=== PATIENT | female | born 1990 | race Hispanic/Latino ===

== ENCOUNTER 2018-10-18 19:27 | Emergency (ER) | payer MEDICAID, OTHER ==
[2018-10-18 19:27] VITALS: BMI 42.0
--- NOTE | 2018-10-18 19:59 | C.PDOC ---
History Of Present Illness The patient presents to the ED for evaluation of shortness of breath and chest discomfort that have been intermittent for around one month. Patient was given an Albuterol inhaler, which she has used twice without relief. Patient is s peaking in full sentences in the ED at this time and denies fever, chills, nausea, vomiting, recent prolonged trips, or known trauma. Time Seen by Provider: 10/18/18 19:59 Chief Complaint (Nursing): Chest Pain History Per: Patient History/Exam Limitations: no limitations Onset/Duration Of Symptoms: Intermittent Episodes, Other (one month ) Current Symptoms Are (Timing): Still Present Severity: Mild Pain Scale Rating Of: 2 Quality: "Pain" Modifying Factors: None Exacerbating Factors: None Alleviating Factors: None Recent travel outside of the [place]: No Additional History Per: Patient Past Medical History Reviewed: Historical Data, Nursing Documentation, Vital Signs Vital Signs: Last Vital Signs Temp 97.9 F 10/18/18 19:42 Pulse 99 H 10/18/18 19:42 Resp 22 10/18/18 19:42 BP 130/87 10/18/18 19:42 Pulse Ox 100 10/18/18 19:42 - Medical History PMH: Asthma, Diabetes, Hypercholesterolemia, Sleep Apnea (Has C PAP at home for sleep but does not use it) Denies: Chronic Kidney Disease Surgical History: Endoscopy - [facility] Procedures ESOPHAGOGASTRODUODENOSCOPY [EGD] W/CLOSED BIOPSY (05/30/14) HIGHLY SELECT VAGOTOMY (09/02/14) LAPAROSCOPIC GASTROENTEROSTOMY (09/02/14) OTHER GASTROSCOPY (09/02/14) VACCINATION NEC (09/02/14) Family History: States: Unknown Family Hx - Social History Hx Tobacco Use: No Hx Alcohol Use: Yes Hx Substance Use: No - Immunization History Hx Influenza Vaccination: Yes Review Of Systems Constitutional: Negative for: Fever, Chills Cardiovascular: Positive for: Other (chest discomfort ) Respiratory: Positive for: Shortness of Breath Physical Exam - Physical Exam Appears: Non-toxic, No Acute Distress Skin: Warm, Dry Head: Normacephalic Eye(s): bilateral: Normal Inspection Oral Mucosa: Moist Neck: Supple Chest: Symmetrical, No Deformity, No Tenderness Cardiovascular: Rhythm Regular, No Murmur Respiratory: No Rales, No Rhonchi, No Wheezing, Other (speaking in full sentences ) Gastrointestinal/Abdominal: Soft, No Tenderness, No Guarding, No Rebound Extremity: Normal ROM, Capillary Refill (less than 2 seconds) Neurological/Psych: Oriented x3 ED Course And Treatment - Laboratory Results Result Diagrams: 10/18/18 20:23 10/18/18 20:23 ECG: Interpreted By Me, Viewed By Me ECG Rhythm: Sinus Rhythm (99), Nonspecific Changes O2 Sat by Pulse Oximetry: 100 Pulse Ox Interpretation: Normal Progress Note: Bloodwork, urinalysis, EKG ordered and reviewed. Albuterol INH and IV Fluids given. Reevaluation Time: 00:20 Reassessment Condition: Improved Medical Decision Making Medical Decision Making: Upon provider reevaluation patient is feeling better, is medically stable, and requires no further treatment in the ED at this time. Patient will be discharged home with Rx for albuterol . Counseling was provided and all questions were answered regarding diagnosis and need for follow up with the referred clinic. T here is agreement to discharge plan. Return if symptoms persist or worsen. Disposition Counseled Patient/Family Regarding: Studies Performed, Diagnosis, Need For Followup - Disposition Referrals: Jason Singh MD [Medical Doctor] - Disposition: HOME/ ROUTINE Disposition Time: 00:23 Condition: FAIR Additional Instructions: Please follow up with your manager cardiac and have a repeat BHCG in 7 days Prescriptions: Albuterol HFA [Ventolin HFA 90 mcg/actuation (8 g)] 2 puff IH [id number] PRN #1 puff PRN Reason: Wheezing Instructions: - The First Month, Asthma, Adult (DC) Forms: [facility] (Indonesian) - Clinical Impression Clinical Impression: Reactive airway disease, - Scribe Statement The provider has reviewed the documentation as recorded by the Scribe (Mraibel Bardales) Provider Attestation: All medical record entries made by the Scribe were at my direction and personally dictated by me. I have reviewed the chart and agree that the record accurately reflects my personal performance of the history, physical exam, medical decision making, and the department course for this patient. I have also personally directed, reviewed, and agree with the discharge instructions and disposition.
[2018-10-18] MEDS ORDERED: Sodium Chloride 0.9% 1,000 ML IV ONE (20:15)
[2018-10-18 20:27] LABS: BASO % 0.4 % (0.0-2.0); EOS % 0.5 % (0.0-4.0); HEMOGLOBIN 8.8 g/dL (11.0-16.0); LYMPH # 2.2 K/uL (1.0-4.3); LYMPH % 30.1 % (20.0-40.0); MEAN CELL VOLUME 69.6 fL (81.0-99.0); MEAN CORPUSCULAR HGB CONC 30.2 g/dL (33.0-37.0); MEAN PLATELET VOLUME 8.4 fL (7.2-11.7); MONO # 0.6 K/uL (0.0-0.8); MONO % 7.8 % (0.0-10.0); NEUT # 4.5 K/uL (1.8-7.0); NEUT % 61.2 % (50.0-75.0); RBC 4.2 Mil/uL (3.80-5.20); WHITE BLOOD COUNT 7.3 K/uL (4.8-10.8)
[2018-10-18 20:38] LABS: ALB/GLOB RATIO 1.4 (1.0-2.1); ALBUMIN 4.1 g/dL (3.5-5.0); ALT/SGPT 15 U/L (9-52); AST/SGOT 31 U/L (14-36); BLOOD UREA NITROGEN 8 mg/dL (7-17); CALCIUM 8.6 mg/dl (8.6-10.4); GFR NON-AFRICAN AMERICAN > 60
[2018-10-18 20:41] LABS: ABG ALLEN TEST POS; ARTERIAL BLOOD GAS HCO3 22.8 mmol/L (21-28); ARTERIAL BLOOD GAS O2 SAT 97.4 % (95-98); ARTERIAL BLOOD GAS PCO2 30 mm/Hg (35-45); ARTERIAL BLOOD GAS PH 7.44 (7.35-7.45); ARTERIAL BLOOD GAS PO2 92 mm/Hg (80-100); ARTERIAL BLOOD GAS TCO2 21.3 mmol/L (22-28)
[2018-10-18 20:50] LABS: B-TYPE NATRIURETIC PEPTIDE 76.6 pg/mL (0-450)
[2018-10-18] MEDS: Albuterol-Ipratrop 3 mg / 0.5 (3 ml) UD IH SCH (20:57)
[2018-10-18] MEDS ORDERED: Albuterol-Ipratrop 3 mg / 0.5 (3 ml) UD ONE (20:57)
[2018-10-18 21:07] LABS: HCG,QUALITATIVE URINE POSITIVE (NEGATIVE)
[2018-10-18 21:14] LABS: SQUAMOUS EPITHIAL 4 /hpf (0-5); URINE BACTERIA OCC (<OCC); URINE BILIRUBIN NEGATIVE (NEGATIVE); URINE BLOOD 1+ (NEGATIVE); URINE CLARITY Clear (Clear); URINE COLOR Yellow (YELLOW); URINE GLUCOSE (UA) NORMAL (Normal); URINE LEUKOCYTE ESTERASE TRACE Leu/uL (Negative); URINE PROTEIN NEGATIVE (NEGATIVE); URINE UROBILINOGEN NORMAL mg/dL (0.2-1.0)
[2018-10-18 21:58] LABS: PROTHROMBIN TIME 11.1 SECONDS (9.7-12.2)
[2018-10-19 00:27] VITALS: BP 137/89; PULSE 74; RESP 17; TEMP 98.6; O2SAT 99
--- NOTE | 2018-10-19 11:40 | US ---
Date of service: 10/18/2018 PROCEDURE: HISTORY: abd pain hcg 1300. Patient is unsure of the LMP. COMPARISON: None TECHNIQUE: Transabdominal and transvaginal TECHNIQUE: Real-time 2D imaging, duplex and color Doppler. FINDINGS: The uterus is anteverted measures 9.5 x 5.3 x 6.0 cm. The endometrium appears thickened at the fundus and measures 1.5 cm. There is a tiny 2.3 x 1.8 by 3.1 mm anechoic focus in the thickened endometrial portion of the central uterine cavity which may represent a very tiny gestational sac is too small to accurately characterize or date. This does not exclude an ectopic. Right ovary measures 3.8 x 2.4 x 3.7 cm. There is normal Doppler flow here seen. A right corpus luteal cyst is suggested measuring 2.4 x 2.0 x 2.4 cm. The left ovary measures 3.6 x 2.2 x 3.2 cm. Here there is also normal Doppler flow appreciated. A a left follicular ovarian cysts is suggested measuring 1.6 x 1.7 x 1.6 cm. No free fluid in the cul-de-sac seen. IMPRESSION: No definitive intrauterine gestation identified. The tiny approximately 2 to 3 mm anechoic focus within the uterine cavity thickened endometrial sec grimm may represent a very early less than 5 week gestation. The pseudo gestational sac of an ectopic is not excluded. Correlation with serial beta HCG levels is recommended. Findings compatible with a right corpus luteal cyst. Concordant results (preliminary interpretation) provided by sayra.
--- NOTE | 2018-10-22 20:04 | CARD ---
APPROVED REPORT Date of service: 10/18/2018 EKG Measurement Heart [id number] <Conclusion> Normal sinus rhythm Normal ECG
== END 2018-10-19 00:31 | disposition home or self-care (01) ==
LOC: C.ER 19:27
DX: O26.891 Other specified pregnancy related conditions, first trimester (principal); Z3A.00 Weeks of gestation of pregnancy not specified; J45.909 Unspecified asthma, uncomplicated; E11.9 Type 2 diabetes mellitus without complications; E78.00 Pure hypercholesterolemia, unspecified; G47.30 Sleep apnea, unspecified
CPT/HCPCS: 76830; 76856; 80053; 81001; 82803; 83880; 84484; 84702; 84703; 85025; 85378; 85610; 85730; 93005; 99284; J7030